=== PATIENT | female | born 1980 | race Caucasian/White ===

== ENCOUNTER → 2021-11-07 | Emergency (ER) | payer BC ==
[~2021-11-07] MED LIST: CALTRATE 600 +1 EAC1 PO; FERROUS SULFAT325 MG PO; MULTI-DAY VITA1 EACH PO; NORCO 5-325 TA1 EACH PO; TENORMIN 50 MG50 MG PO; VIT D PO; VITB12 INJ
[2021-11-07 17:28] LABS: HEMOGLOBIN 12.8 gm/dl (12.3-15.3); RED BLOOD COUNT 4.84 M/UL (4.00-5.10); WHITE BLOOD COUNT 10.6 K/UL (4.5-11.0)
[2021-11-07 17:55] LABS: BUN/CREATININE RATIO 17 (0-10)
== END | disposition other institution (70) ==
LOC: ER1 16:07
PROVIDERS: Preventive Medicine Occupational Medicine
DX: U07.1 COVID-19 (principal); I63.9 Cerebral infarction, unspecified; I10 Essential (primary) hypertension; E11.9 Type 2 diabetes mellitus without complications
CPT/HCPCS: 0240U; 70450; 70496; 70498; 71045; 80053; 81001; 85025; 85610; 85652; 86140; 93005; 99285; J2997; Q9967